=== PATIENT | female | born 1965 | race Caucasian/White ===

== ENCOUNTER → 2017-11-19 08:29 | Outpatient (CLI) | payer OTHER, SELFPAY ==
[2017-11-19 12:37] LABS: Hemoglobin A1c 6.2 % (4.2-6.3)
[2017-11-19 12:55] LABS: Anion Gap 9 (5-15); BUN 15 mg/dL (7-18); BUN/Creat Ratio 20.9 RATIO (10-20); Calcium,Total 9.4 mg/dL (8.5-10.1); Chloride 106 mmol/L (98-107); Creatinine, Serum 0.72 mg/dL (0.55-1.02); EST Glomerular Filtration Rate 90 mL/min (>60); Est Glom Filt Rate - Afr Amer 109 mL/min (>60); Glucose 102 mg/dL (74-106); Potassium 4.3 mmol/L (3.5-5.1); Sodium Level 139 mmol/L (136-145); T4 Free Direct 0.82 ng/dL (0.76-1.46); Thyroid Stim Hormone (TSH) 3.04 uIU/mL (0.358-3.74)
== END ==
PROVIDERS: Family Provider Family Medicine; PCP Family Medicine; Visit Provider Family Medicine
DX: E03.9 Hypothyroidism, unspecified (principal); R73.01 Impaired fasting glucose
CPT/HCPCS: 36415; 80048; 83036; 84439; 84443

== ENCOUNTER → 2020-09-11 09:18 | Outpatient (CLI) | payer OTHER, SELFPAY ==
[2017-11-30 16:16] VITALS: BMI 29.1
[2020-09-11 12:48] LABS: Vitamin D,25 Hydroxy 59.6 ng/mL
[2020-09-11 12:56] LABS: ALB/GLOB Ratio 1.1 RATIO (0.9-2.4); AST(SGOT) 35 U/L (15-37); Alanine Aminotransfer ALT/SGPT 57 U/L (13-56); Albumin, Serum 4.2 g/dL (3.2-5.0); Alkaline Phosphatase 81 U/L (45-117); Anion Gap 6 (5-15); BUN 15 mg/dL (7-18); BUN/Creat Ratio 19.1 RATIO (10-20); Calcium,Total 9.2 mg/dL (8.5-10.1); Chloride 106 mmol/L (98-107); Cholesterol 240 mg/dL (200); Creatinine, Serum 0.79 mg/dL (0.55-1.02); EST Glomerular Filtration Rate 80 mL/min (>60); Est Glom Filt Rate - Afr Amer 97 mL/min (>60); Globulin 3.8 g/dL (2.2-4.2); Glucose 99 mg/dL (74-106); High Density Lipoprotein 52 mg/dL; Potassium 4.7 mmol/L (3.5-5.1); Sodium Level 139 mmol/L (136-145); Thyroid Stim Hormone (TSH) 1.93 uIU/mL (0.358-3.74); Triglycerides 250 mg/dL; Very Low Density Lipoprotein 50 mg/dL (5-40)
== END ==
PROVIDERS: PCP Family Medicine; Visit Provider Family Medicine
DX: E78.5 Hyperlipidemia, unspecified (principal); E03.9 Hypothyroidism, unspecified; E55.9 Vitamin D deficiency, unspecified; R74.02 Elevation of levels of lactic acid dehydrogenase [LDH]
CPT/HCPCS: 36415; 80053; 80061; 82306; 84443

== ENCOUNTER → 2021-01-06 08:30 | Outpatient (CLI) | payer OTHER, SELFPAY | PROVIDERS: PCP Family Medicine; Visit Provider Family Medicine | DX: Z20.828 Contact with and (suspected) exposure to other viral communicable diseases (principal) | CPT/HCPCS: 87635; U0005; U0003 ==

== ENCOUNTER → 2022-10-29 | Outpatient (CLI) | payer OTHER, SELFPAY ==
[2022-10-29 10:20] LABS: Absolute Neutrophil Count 2.3 X10^3/uL (2.0-7.7); Basophil# 0.05 X10^3/uL; Basophil% 0.9 % (0-1); Eosinophil# 0.17 X10^3/uL; Eosinophils% 3.1 % (0-5); Hematocrit 41.3 % (37-47); Hemoglobin 13.6 g/dL (12.0-15.0); Lymphocyte % 46.8 % (19-41); Mean Corp Hgb Conc 32.9 g/dL (32-36); Mean Corpuscular Hgb 30.7 pg (27.0-32.0); Mean Corpuscular Volume 93.2 fL (81-99); Mean Platelet Vol. 9.3 fl (6.2-12.0); Monocyte# 0.36 X10^3/uL; Monocyte% 6.5 % (0-10); NRBC Flagged by Analyzer 0 % (0-5); Neutrophil # 2.31 X10^3/uL (2.7-7.7); Neutrophil % 41.4 % (47-70); Platelet Count 373 K/mm3 (150-450); RBC Distribution Width CV 12.7 % (11.6-14.6); RBC Distribution Width SD 43.8 fl (35.1-43.9); Red Blood Count 4.43 M/mm3 (4.2-5.4); White Blood Count 5.6 K/mm3 (4.4-11.0)
[2022-10-29 10:26] LABS: Vitamin B12 840 pg/mL (211-911); Vitamin D,25 Hydroxy 40.7 ng/mL
[2022-10-29 10:33] LABS: AST(SGOT) 136 U/L (15-37); Alanine Aminotransfer ALT/SGPT 263 U/L (13-56); Alkaline Phosphatase 134 U/L (45-117); Anion Gap 8 (5-15); BUN 13 mg/dL (7-18); BUN/Creat Ratio 17.2 RATIO (10-20); Calcium,Total 9.4 mg/dL (8.5-10.1); Chloride 104 mmol/L (98-107); Cholesterol 313 mg/dL (200); Creatinine, Serum 0.76 mg/dL (0.55-1.02); EST Glomerular Filtration Rate 83 mL/min (>60); Est Glom Filt Rate - Afr Amer 101 mL/min (>60); Globulin 4.2 g/dL (2.2-4.2); Glucose 107 mg/dL (74-106); High Density Lipoprotein 35 mg/dL; Potassium 4.1 mmol/L (3.5-5.1); Protein, Total 8.2 g/dL (6.4-8.2); Sodium Level 137 mmol/L (136-145); Triglycerides 441 mg/dL
[2022-10-29 10:49] LABS: Hemoglobin A1c 5.9 % (3.8-5.6)
== END | disposition home or self-care (01) ==
PROVIDERS: PCP Family Medicine; Referring Provider Family Medicine; Visit Provider Family Medicine
DX: Z13.0 Encounter for screening for diseases of the blood and blood-forming organs and certain disorders involving the immune mechanism (principal); E78.5 Hyperlipidemia, unspecified; E03.9 Hypothyroidism, unspecified; R53.83 Other fatigue; Z13.1 Encounter for screening for diabetes mellitus
CPT/HCPCS: 36415; 80053; 80061; 82306; 82607; 83036; 84439; 84443; 85025

== ENCOUNTER → 2022-11-04 | Outpatient (CLI) | payer OTHER, SELFPAY ==
--- NOTE | 2022-11-04 08:48 | US_ITS ---
STUDY: ABDOMINAL ULTRASOUND - RIGHT UPPER QUADRANT REASON FOR VISIT: Female, 57 years old elevated liver enzymes TECHNIQUE: Ultrasound evaluation of the right upper quadrant was performed with real-time and static velasquez-scale imaging. TECHNICAL QUALITY: Adequate. COMPARISON: None. FINDINGS: Liver: The liver measures 17 cm. There is increased echogenicity consistent with fatty infiltration. The bile ducts are within normal limits. There is hepatic color flow. The direction of portal flow is hepatopetal. There is no demonstrated mass lesion. Gallbladder: Normal distended gallbladder. The gallbladder wall measures 2 mm. There is a negative sonographic Scott''s sign. There is no pericholecystic fluid. There are no gallstones. Common Bile Duct (C.B.D.): The common bile duct measures 6 mm. Pancreas: Normal size of the head, body and tail of the pancreas. There is normal echogenicity of the pancreas. There is no demonstrated pancreatic mass or cyst. Right Kidney: Normal size of the right kidney. The right kidney measures 11.6 cm x 4.8 cm x 5.3 cm. Normal renal cortex. The right cortex measures 1.7 cm. There is no demonstrated renal mass or cyst. There is no right hydronephrosis. US/Abdomen Limited IMPRESSION: Borderline hepatomegaly. Fatty infiltration of the liver. Electronically Signed: Anuj Bourgeois MD at 15:40 EDT ,
== END | disposition home or self-care (01) ==
LOC: US 08:47
PROVIDERS: PCP Family Medicine; Referring Provider Family Medicine; Visit Provider Family Medicine
DX: R74.8 Abnormal levels of other serum enzymes (principal)
CPT/HCPCS: 76705

== ENCOUNTER → 2022-11-26 | Outpatient (CLI) | payer OTHER, SELFPAY ==
[2022-11-26 10:54] LABS: AST(SGOT) 25 U/L (15-37); Alanine Aminotransfer ALT/SGPT 41 U/L (13-56); Albumin, Serum 4.4 g/dL (3.2-5.0); Alkaline Phosphatase 79 U/L (45-117); Bilirubin, Direct 0.14 mg/dL (0.00-0.30); Globulin 3.9 g/dL (2.2-4.2); Protein, Total 8.3 g/dL (6.4-8.2); Thyroid Stim Hormone (TSH) 7.94 uIU/mL (0.358-3.74)
== END | disposition home or self-care (01) ==
LOC: MTLAB 08:47
PROVIDERS: PCP Family Medicine; Referring Provider Family Medicine; Visit Provider Family Medicine
DX: R74.8 Abnormal levels of other serum enzymes (principal); E03.9 Hypothyroidism, unspecified
CPT/HCPCS: 36415; 80076; 84443

== ENCOUNTER 2022-12-18 07:19 | Emergency (ER) | payer OTHER, SELFPAY ==
[2022-12-18 07:19] VITALS: BP 159/114; PULSE 107; RESP 16; TEMP 36.1; O2SAT 99
[2022-12-18 07:22] VITALS: BMI 27.6
--- NOTE | 2022-12-18 07:23 | EKG12_ITS ---
Test Reason : CP Blood Pressure : / mmHG Vent. Rate : 088 BPM Atrial Rate : 088 BPM P-R Int : 132 ms QRS Dur : 092 ms QT Int : 366 ms P-R-T Axes : 060 076 -11 degrees QTc Int : 442 ms Normal sinus rhythm T wave abnormality Abnormal ECG Confirmed by NICOLE TALAVERA, STEFANO ([id number]), book editor CLAIR JACOBS ([id number]) on 12/22/2022 8:43:22 AM Referred By: SHALA Confirmed By:STEFANO RIVERA MD
--- NOTE | 2022-12-18 07:23 | ED.VIS.CHEST ---
HPI History of Present Illness Chief Complaint: Palpitations Detail of Chief Complaint: Chest pressure, palpitations and dizziness Informant: patient and spouse/S.O. Onset/Context/Timing Onset: Yesterday (Last evening when she went to get her in a beverage) and Weeks (1 week ago after playing golf) Activity at onset: sudden Timing: Continuous (Patient states the pressure is still present since last evening) Quality: Positive for Pressure Location: Substernal Current Severity: Mild Maximum Severity: Moderate Worsened By: Nothing Relieved By: - (Supine position) Associated Symptoms: Positive for Diaphoresis, Dyspnea, Lightheadedness (Patient defines dizziness as lightheadedness) and Palpitations; Negative for Cough, Fever or Acid Reflux Narrative Narrative: Patient is a 57-year-old woman with history of hypothyroidism hypercholesterolemia who states her blood pressure was elevated 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 She is not on antihypertensive meds. She is on a cholesterol med and thyroid medicine. She states she was not on her thyroid medicine for some time because her doctor left town and the position that assumed her care would not fill her prescription. Patient denies history of GERD, hiatal hernia or peptic ulcers. Patient denies change in color, consistency or caliber of her stool. Patient denies history of VTE and has no risk factors. She is not on hormonal therapy. She denies leg pain, swelling discoloration. Patient denies recent illness, fever, chills or night sweats. Other than the episode that occurred last Wednesday after 27 holes of golf and episode last evening patient has not experienced chest pressure before. The discomfort does not radiate. Prior Similar Symptoms: No Recent Illness/Hospitalization: No CVD Risk Factors: Positive for Hypercholesterolemia; Negative for Hypertension, Diabetes, Family History 1' </=55 or Smoking PE Risk Factors: Negative for Recent Travel/Surgery, Recent Immobilization, Prior DVT or PE, Cancer or OCP + Smoking + >/=35 TAD Risk Factors: Negative for Marfan's Syndrome, Hypertension or Family History PFSH PFS Medical History (Updated 12/18/22 @ 10:[address] Baldomero Zavala MD) Hypothyroid Post endometrial ablation syndrome Allergy/AdvReac Type Severity Reaction Status Date / Time Penicillins Allergy Rash Verified 12/18/22 07:21 Sulfa (Sulfonamide Allergy Rash Verified 12/18/22 07:21 Antibiotics) Social History (Updated 12/18/22 @ 07:[address] Baldomero Zavala MD) household members: spouse Smoking Status: Never smoker alcohol intake: never substance use type: does not use what type of physical activity do you participate in: walking and aerobics frequency: 3-4 times per week ROS ROS ED Constitutional Constitutional ED: Denies chills, fever(s), subjective, sweats or weight loss Eyes Eyes: Reports none; Denies blurry vision, change in vision or diplopia ENT ENT ED: Denies ear pain, rhinorrhea or sore throat Cardiovascular Cardiovascular: Reports as per HPI; Denies orthopnea or paroxysmal nocturnal dyspnea Respiratory/Chest Respiratory/Chest: Reports dyspnea; Denies cough, dyspnea on exertion, orthopnea, paroxysmal nocturnal dyspnea or sputum Gastrointestinal Gastrointestinal: Denies abdominal pain, diarrhea, melena or vomiting Genitourinary Genitourinary ED: Denies dysuria, hematuria or urinary frequency Musculoskeletal Musculoskeletal: Denies arthralgias, back pain, myalgias or neck pain Integumentary Denies rash Neurologic Neurologic: Denies headache(s) or paresthesias Psychiatric Psychiatric: Reports anxiety; Denies depression Endocrine Endocrinology: Denies cold intolerance or heat intolerance Hematologic/Lymphatic Hematologic/Lymphatic: Denies easy bleeding or easy bruising EXAM Physical Exam Const Vital Signs: 12/18/22 07:19 12/18/22 07:24 12/18/22 07:54 Temperature 97.0 F L Temperature Source Temporal Pulse Rate 107 H 87 90 Respiratory Rate 16 12 18 Blood Pressure 159/114 H 151/102 H 152/95 H Blood Pressure Mean 129 118 114 Pulse Ox 99 95 Oxygen Delivery Method Room Air Room Air 12/18/22 09:43 Temperature Temperature Source Pulse Rate 78 Respiratory Rate 14 Blood Pressure 134/86 H Blood Pressure Mean 102 Pulse Ox 97 Oxygen Delivery Method Room Air Positive well nourished and well developed General Appearance ED: well developed and NAD HEENT Reports moist mucous membranes normocephalic and atraumatic Eyes PERRL and EOMs intact bilaterally General Eye ED: Negative for pale conjunctiva or scleral icterus Neck no lymphadenopathy, supple and no JVD Chest Wall inspection of chest normal and palpation of chest normal Resp normal respiratory effort and clear to auscultation bilaterally Cardio regular rate, regular rhythm, S1 normal heart sound, S2 normal heart sound and no murmurs GI normal to inspection, nondistended, normoactive bowel sounds, non-tender, non-distended and no masses; Negative for hepatosplenomegaly Back/Spine no CVA tenderness Extremity normal to inspection Extremity Narrative: There is no asymmetry, swelling, discoloration, leg vein distention, palpable cords or tenderness along the distribution of the deep venous system. General Extremety ED: Negative for edema, pulses abnormal or tenderness General Extremity: Negative for edema or pulses abnormal Neuro oriented x3, CN's II-XII intact bilaterally, no sensory deficits noted and gait normal Sensorium / Orientation: awake and alert Psych mental status grossly normal Skin no rashes or lesions noted and no wounds Heart Score History: Slightly/Non-Suspicious ECG: Nonspecific Repolarization Age: >45 - <65 years Risk Factors: 1 or 2 Risk Factors Troponin: </= Normal Limit Score: 3 MDM MDM MDM Narrative Medical decision making narrative: Patient is a middle-aged woman who presents with chest pressure lightheadedness and palpitations. She had a stress test in 2007 which was unremarkable. Differential diagnosis would include cardiac ischemia, noncardiac etiology which would include GI, pulmonary. Patient is not PERC negative however story is not consistent with PE. Her Wells score for DVT is -2. Will obtain EKG, troponin and 2-hour troponin as well as appropriate blood work. Since patient has an abnormal EKG will treat with aspirin. Patient has elevated blood pressure. Initial heart rate was rapid. Repeat is normal. She is not hypoxic. Patient had an ultrasound of her gallbladder because of the elevated liver enzymes, which did normalize. It is suspect this is due to fatty liver. Ultrasound that was read by Dr. Bella revealed borderline hepatomegaly and fatty liver infiltration. Dr. Warner called back and said there are no old EKGs available for review. Patient heart score is 3. She is at low risk and is appropriate for outpatient work-up. History & Record Review Discussion w/independent historian: Patient and Significant other Additional record(s) reviewed:: Prior outpatient record (Nothing available later than 2018.) and Prior labs (Patient had lab work October and November of this year. In October patient had elevated transaminases. They were normal when labs were repeated in November.) Lab Data Attestation: I reviewed the patient's lab results. Lab results narrative: CBC is unremarkable. Basic metabolic panel is unremarkable. First troponin is normal at 5. 2-hour is pending. 2-hour troponin is 5 with a delta of 0. The EKG changes may be chronic. Patient qualifies for outpatient work-up/stress test. She will need to follow-up with her doctor to arrange for outpatient stress test. Labs: Laboratory Results - last 24 hr 12/18/22 12/18/22 12/18/22 07:25 07:25 09:45 WBC 6.0 RBC 4.68 Hgb 14.7 Hct 43.0 MCV 91.9 MCH 31.4 MCHC 34.2 RDW Std Deviation 41.5 RDW Coeff of Jimmie 12.4 Plt Count 292 MPV 9.4 Sodium 141 Potassium 4.0 Chloride 108 H Carbon Dioxide 24.0 Anion Gap 9 BUN 14 Creatinine 0.73 Estim Creat Clear Calc 83.70 Est GFR (MDRD) Af Amer 105 Est GFR (MDRD) Non-Af 86 BUN/Creatinine Ratio 19.2 Glucose 113 H Calcium 9.6 Troponin I High Sens 5 5 Radiography Chest X-Ray - ED: 2 View and Read by ED Physician (3 view chest x-ray dependently reviewed interpreted by me at 0742 as normal. Cardiac silhouette and size normal. Perihilar region normal. Lung parenchyma normal. Osseous structures unremarkable.) X-Ray: No Fracture Diagnostic Testing: Clinical Impression(s) from Imaging Studies Chest X-Ray 12/18/22 07:35 IMPRESSION: No acute cardiopulmonary disease. Electronically Signed: Guy Bailey MD at 7:50 EDT Reading Location ID and State: [facility] / [place] Tel , Service support , Rhythm Strip Rhythm Strip: Sinus Rhythm Rate: 84 EKG Initial EKG: Attestation: I personally reviewed and interpreted this EKG as follows: Interpretation: Sinus Rhythm (Rate is 88. OH interval is 132 ms. Cures duration 92 ms. QT duration 366 ms. [place] is normal. There is evidence of inferolateral ST-T wave changes. There is no old EKG for comparison.) Prior: No Prior Management Discussion w/another healthcare provider: Other (Dr. Warner was contacted is on-call for Ortho group Dr. Jones worked for to determine if there is an old EKG.) Discharge Plan Triage Chief Complaint: Palpitations ED Provider: LucasBaldomero Dx/Rx/DC Orders Clinical Impression: Pressure in chest, Hypercholesterolemia, Elevated BP without diagnosis of hypertension, Abnormal ECG, Hypothyroidism Instructions: ED Chest Pain, Uncertain Cause, ED Hypertension, To Be Confirmed Primary Care Provider: Faith Vines Referrals: Faith Vines, [Primary Care Provider] -
[2022-12-18 07:24] VITALS: BP 151/102; PULSE 87; RESP 12
--- NOTE | 2022-12-18 07:26 | NURSING ---
NO OLD EKGS
--- NOTE | 2022-12-18 07:35 | RAD_ITS ---
EXAM: XR CHEST, 2 VIEWS CLINICAL INDICATION: Chest pressure TECHNIQUE: Frontal and lateral views of the chest. COMPARISON: No relevant prior studies available. FINDINGS: LUNGS AND PLEURAL SPACES: Normal. No consolidation or edema. No pneumothorax. No effusion. HEART: Normal heart size. MEDIASTINUM: No mediastinal or hilar mass. BONES/JOINTS: No acute abnormality. RAD/Chest PA and Lateral IMPRESSION: No acute cardiopulmonary disease. Electronically Signed: Guy Bailey MD at 7:50 EDT ,
[2022-12-18 07:37] LABS: Hemoglobin 14.7 g/dL (12.0-15.0); Mean Corp Hgb Conc 34.2 g/dL (32-36); Mean Corpuscular Hgb 31.4 pg (27.0-32.0); Mean Corpuscular Volume 91.9 fL (81-99); Mean Platelet Vol. 9.4 fl (6.2-12.0); Platelet Count 292 K/mm3 (150-450); RBC Distribution Width CV 12.4 % (11.6-14.6); RBC Distribution Width SD 41.5 fl (35.1-43.9); Red Blood Count 4.68 M/mm3 (4.2-5.4)
[2022-12-18 07:53] LABS: Anion Gap 9 (5-15); BUN 14 mg/dL (7-18); BUN/Creat Ratio 19.2 RATIO (10-20); Calcium,Total 9.6 mg/dL (8.5-10.1); Chloride 108 mmol/L (98-107); Creatinine, Serum 0.73 mg/dL (0.55-1.02); EST Glomerular Filtration Rate 86 mL/min (>60); Est Glom Filt Rate - Afr Amer 105 mL/min (>60); Glucose 113 mg/dL (74-106); Sodium Level 141 mmol/L (136-145); Troponin-I HS (w/2H Reflex) 5 pg/mL (3.0-54.0)
[2022-12-18] MEDS: Aspirin 81 MG TAB.CHEW 324 MG PO (07:53)
[2022-12-18 07:54] VITALS: BP 152/95; PULSE 90; RESP 18; O2SAT 95
[2022-12-18 09:31] LABS: Reflex Troponin-HS? (from REC) Y
[2022-12-18 09:43] VITALS: BP 134/86; PULSE 78; RESP 14; O2SAT 97
[2022-12-18 10:07] LABS: Troponin-I HS 5 pg/mL (3.0-54.0)
== END 2022-12-18 10:55 | disposition home or self-care (01) ==
LOC: ED 07:33
PROVIDERS: Emergency Provider Emergency Medicine; PCP Family Medicine; Visit Provider Emergency Medicine
DX: R07.89 Other chest pain (principal); E78.00 Pure hypercholesterolemia, unspecified; R03.0 Elevated blood-pressure reading, without diagnosis of hypertension; E03.9 Hypothyroidism, unspecified; R94.31 Abnormal electrocardiogram [ECG] [EKG]; Z79.899 Other long term (current) drug therapy
CPT/HCPCS: 71046; 80048; 84484; 85027; 93005; 99284; A4216

== ENCOUNTER → 2023-01-28 | Outpatient (CLI) | payer OTHER, SELFPAY ==
[2023-01-28 10:53] LABS: T4 Free Direct 0.74 ng/dL (0.76-1.46); Thyroid Stim Hormone (TSH) 5.68 uIU/mL (0.358-3.74)
== END | disposition home or self-care (01) ==
LOC: MTLAB 08:43
PROVIDERS: PCP Family Medicine; Visit Provider Family Medicine
DX: E03.9 Hypothyroidism, unspecified (principal)
CPT/HCPCS: 36415; 84439; 84443

== ENCOUNTER → 2023-04-02 | Outpatient (CLI) | payer OTHER, SELFPAY ==
[2023-04-02 10:39] LABS: ALB/GLOB Ratio 1.1 RATIO (0.9-2.4); AST(SGOT) 20 U/L (15-37); Alanine Aminotransfer ALT/SGPT 32 U/L (13-56); Albumin, Serum 4.2 g/dL (3.2-5.0); Alkaline Phosphatase 67 U/L (45-117); Anion Gap 5 (5-15); BUN 11 mg/dL (7-18); BUN/Creat Ratio 17.4 RATIO (10-20); Calcium,Total 9.4 mg/dL (8.5-10.1); Chloride 110 mmol/L (98-107); Cholesterol 136 mg/dL (200); Creatinine, Serum 0.63 mg/dL (0.55-1.02); EST Glomerular Filtration Rate 102 mL/min (>60); Est Glom Filt Rate - Afr Amer 124 mL/min (>60); Globulin 3.7 g/dL (2.2-4.2); Glucose 94 mg/dL (74-106); High Density Lipoprotein 48 mg/dL; Potassium 3.9 mmol/L (3.5-5.1); Protein, Total 7.9 g/dL (6.4-8.2); Sodium Level 140 mmol/L (136-145); T4 Free Direct 0.98 ng/dL (0.76-1.46); Thyroid Stim Hormone (TSH) 1.65 uIU/mL (0.358-3.74); Triglycerides 163 mg/dL; Very Low Density Lipoprotein 33 mg/dL (5-40)
== END | disposition home or self-care (01) ==
LOC: MTLAB 07:41
PROVIDERS: PCP Family Medicine; Referring Provider Family Medicine; Visit Provider Family Medicine
DX: E78.5 Hyperlipidemia, unspecified (principal); E03.9 Hypothyroidism, unspecified
CPT/HCPCS: 36415; 80053; 80061; 84439; 84443

== ENCOUNTER → 2024-04-13 | Outpatient (CLI) | payer OTHER, SELFPAY ==
[2024-04-13 12:26] LABS: Absolute Lymphocyte Count 2.21 X10^3/uL (0.83-4.51); Absolute Neutrophil Count 2.3 X10^3/uL (2.0-7.7); Basophil# 0.04 X10^3/uL; Basophil% 0.8 % (0-1); Eosinophil# 0.16 X10^3/uL; Eosinophils% 3.1 % (0-5); Hematocrit 42.4 % (37-47); Hemoglobin 13.9 g/dL (12.0-15.0); Lymphocyte # 2.21 X10^3/ul (0.83-4.51); Lymphocyte % 43.3 % (19-41); Mean Corp Hgb Conc 32.8 g/dL (32-36); Mean Corpuscular Hgb 31.1 pg (27.0-32.0); Mean Corpuscular Volume 94.9 fL (81-99); Mean Platelet Vol. 9.8 fl (6.2-12.0); Monocyte# 0.42 X10^3/uL; Monocyte% 8.2 % (0-10); NRBC Flagged by Analyzer 0 % (0-5); Neutrophil # 2.25 X10^3/uL (2.7-7.7); Neutrophil % 44.2 % (47-70); Platelet Count 304 K/mm3 (150-450); RBC Distribution Width CV 12.5 % (11.6-14.6); RBC Distribution Width SD 43.6 fl (35.1-43.9); Red Blood Count 4.47 M/mm3 (4.2-5.4); White Blood Count 5.1 K/mm3 (4.4-11.0)
[2024-04-13 13:03] LABS: ALB/GLOB Ratio 1.1 RATIO (0.9-2.4); AST(SGOT) 24 U/L (15-37); Alanine Aminotransfer ALT/SGPT 32 U/L (13-56); Albumin, Serum 4.1 g/dL (3.2-5.0); Alkaline Phosphatase 78 U/L (45-117); Anion Gap 6 (5-15); BUN 14 mg/dL (7-18); BUN/Creat Ratio 19.5 RATIO (10-20); Calcium,Total 9.7 mg/dL (8.5-10.1); Chloride 107 mmol/L (98-107); Cholesterol 181 mg/dL (200); Creatinine, Serum 0.72 mg/dL (0.55-1.02); EST Glomerular Filtration Rate 88 mL/min (>60); Est Glom Filt Rate - Afr Amer 106 mL/min (>60); Globulin 3.8 g/dL (2.2-4.2); Glucose 110 mg/dL (74-106); Hemoglobin A1c 5.8 % (3.8-5.6); High Density Lipoprotein 54 mg/dL; Potassium 4.4 mmol/L (3.5-5.1); Protein, Total 7.9 g/dL (6.4-8.2); Sodium Level 138 mmol/L (136-145); T4 Free Direct 0.89 ng/dL (0.76-1.46); Triglycerides 170 mg/dL; Very Low Density Lipoprotein 34 mg/dL (5-40)
== END | disposition home or self-care (01) ==
LOC: BFHLAB 09:13
PROVIDERS: PCP Family Medicine; Referring Provider Family Medicine; Visit Provider Family Medicine
DX: E78.5 Hyperlipidemia, unspecified (principal); E03.9 Hypothyroidism, unspecified; R73.01 Impaired fasting glucose
CPT/HCPCS: 36415; 80053; 80061; 83036; 84439; 85025

== ENCOUNTER → 2025-04-19 | Outpatient (CLI) | payer OTHER, SELFPAY ==
[2025-04-19 15:25] LABS: Hematocrit 40.6 % (37-47); Hemoglobin 13.8 g/dL (12.0-15.0); Immature Granulocytes Count 0.020 X10^3/uL (0.0-0.0); Mean Corp Hgb Conc 34.0 g/dL (32-36); Mean Corpuscular Volume 93.3 fL (81-99); Mean Platelet Vol. 9.9 fl (6.2-12.0); NRBC Flagged by Analyzer 0 % (0-5); POSITIVE COUNT YES; Platelet Count 316 K/mm3 (150-450); RBC Distribution Width CV 12.0 % (11.6-14.6); RBC Distribution Width SD 41.1 fl (35.1-43.9); Red Blood Count 4.35 M/mm3 (4.2-5.4); White Blood Count 5.3 K/mm3 (4.4-11.0)
[2025-04-19 16:06] LABS: Differential Indicated SCAN CRITERIA MET
[2025-04-19 16:07] LABS: Differential Comment SCANNED
== END | disposition home or self-care (01) ==
LOC: MTLAB 11:03
PROVIDERS: PCP Family Medicine; Referring Provider Family Medicine; Visit Provider Family Medicine
DX: E78.5 Hyperlipidemia, unspecified (principal); E03.9 Hypothyroidism, unspecified; R73.01 Impaired fasting glucose
CPT/HCPCS: 36415; 80053; 80061; 83036; 84439; 84443; 85025

== ENCOUNTER → 2025-05-01 | Outpatient (CLI) | payer OTHER, SELFPAY ==
[2025-05-01 11:03] LABS: AST(SGOT) 19 U/L (<=31); Alanine Aminotransfer ALT/SGPT 23 U/L (<=34); Albumin, Serum 4.5 g/dL (3.4-4.8); Alkaline Phosphatase 76 U/L (35-104); Anion Gap 11 (5-15); BUN 14 mg/dL (4-19); BUN/Creat Ratio 21.8 RATIO (10-20); Calcium,Total 10.0 mg/dL (7.6-11.0); Carbon Dioxide 25.0 mmol/L (21.0-32.0); Chloride 104 mmol/L (98-108); Cholesterol 171 mg/dL (<=200); Globulin 3.1 g/dL (2.2-4.2); Glucose 98 mg/dL (70-99); Low Density Lipoprotein Calc. 86 mg/dL; Potassium 4.6 mmol/L (3.3-5.1); Triglycerides 165 mg/dL; Very Low Density Lipoprotein 33 mg/dL (5-40); cholesterol:hdl ratio screen 3.27
== END | disposition home or self-care (01) ==
LOC: LAB 08:54
PROVIDERS: PCP Family Medicine; Referring Provider Family Medicine; Visit Provider Family Medicine
DX: E78.5 Hyperlipidemia, unspecified (principal); E03.9 Hypothyroidism, unspecified; R73.01 Impaired fasting glucose
CPT/HCPCS: 80053; 80061; 84439; 84443

== ENCOUNTER 2025-05-18 07:19 | Day surgery (SDC) | payer OTHER, SELFPAY ==
[2025-05-18] VITALS (9 sets, daily range): BP systolic 93–119; BP diastolic 54–75; PULSE 59–70; RESP 16–18; TEMP 36.1–36.4; O2SAT 95–99; BMI 24.5
--- NOTE | 2025-05-18 07:51 | PCM.PRE.AN2 ---
ASA Classification* ASA Classification ASA Classification: 2 Assessment & Plan Anesthesia* Anesthesia Assessment Anesthesia Assessment: Discussed sedation and/or anesthesia options, risks, benefits, and alternatives with patient/parents/legal guardian/POA. Questions invited. The patient/parents/legal guardian/POA seems to understand and agrees to proceed with anesthesia plan. Reviewed the physical assessment, medical history, allergy history and patient home medications list prior to surgery/procedure/anesthetic and documented any changes. Performed airway and anesthesia risk assessments. Anesthesia Type Anesthesia Type: MAC Anesthesia Focused Assessment* Temperature: 97.6 F Pulse Rate: 70 Blood Pressure: 119/75 Respiratory Rate: 18 Pulse Ox: 99 Airway Assessment Mouth opens: >3 cm Mallampati Score: II Labs Anesthesia Preop lab: CBC WBC, (4.4-11.0) 5.3 K/mm3 04/19/25, 11:17 RBC, (4.2-5.4) 4.35 M/mm3 04/19/25, 11:17 Hgb, (12.0-15.0) 13.8 g/dL 04/19/25, 11:17 Hct, (37-47) 40.6 % 04/19/25, 11:17 Plt Count, (150-450) 316 K/mm3 04/19/25, 11:17 CHEMISTRY Potassium, (3.3-5.1) 4.6 mmol/L 05/01/25, 09:00 Sodium, (133-145) 139 mmol/L 05/01/25, 09:00 BUN, (4-19) 14 mg/dL 05/01/25, 09:00 Creatinine, (0.70-1.20) 0.64 mg/dL L 05/01/25, 09:00 Glucose, (70-99) 98 mg/dL 05/01/25, 09:00 TSH, (0.300-4.200) 1.930 uIU/mL 05/01/25, 09:00 COAG Pre-Assessment Diagnosis/Proposed Procedure Planned Operative Procedure(s): COLONOSCOPY Anesthesia History 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 When Was Last Pacemaker Check QUESTION #4 FULL TEXT: You/Your Family Experience fever (hyperthermia) with Anesthesia Last Oral Intake Last Oral intake: Last Oral Intake NPO since 04:30 05/18/25 07:48 Meds taken in AM with sips of No 05/18/25 07:48 water? Meds patient instructed to take am of surgery PONV PONV - general accountant: PONV - general accountant Female Yes 05/16/25 12:09 HX of Motion Sickness No 05/16/25 12:09 HX of N/V After Surgery No 05/16/25 12:09 Non-Smoker Yes 05/16/25 12:09 Duration of Surgery greater No 05/16/25 12:09 than 60 minutes Number of Risk Factors 2 05/16/25 12:09 PONV Score Moderate Risk 05/16/25 12:09 Height & Weight Height & Weight: Anesthesia: Height & Weight Height 5 ft 6 in 05/18/25 07:48 Weight: 69 kg 05/18/25 07:48 Body Mass Index (BMI) 24.5 05/18/25 07:48 Respiratory Assessment Respiratory Assessment - general accountant: Respiratory Tract Infection Hx - general accountant Hx Respiratory Tract Infection No 05/16/25 12:09 STOP Sleep Apnea STOP Sleep Apnea - general accountant: STOP Sleep Apnea - general accountant Hx Hypertension Yes 05/16/25 12:09 Hx Sleep Apnea No 05/16/25 12:09 CPAP BIPAP Do you snore loudly (louder No 05/16/25 12:09 than talking or can be heard Do you often feel tired/ No 05/16/25 12:09 fatigued/ sleepy during daytime? Has anyone observed you stop No 05/16/25 12:09 breathing during sleep? STOP Results Negative 05/16/25 12:09 QUESTION #5 FULL TEXT : Do you snore loudly (louder than talking or can be heard through closed doors)? 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 Specify any problems Hx of Preganancy in last 3 No 05/16/25 12:09 Months Nurse Filling Out Transfusion VLEHMAN 05/16/25 12:09 & Questions: Date: 05/16/25 05/16/25 12:09 Time: 12:11 05/16/25 12:09 Patient unable to answer at this time (ie. confused, unrespo /Reproduction History /Reproductive History - general accountant: /Reproductive Hx- general accountant Hx Now No 05/16/25 12:09 Gestational Age (in weeks): EDC: Hx Hx Para Hx Section SAB No 05/16/25 12:09 Active Medications Active Medications: Current Medications Generic Name Dose Route Start Last Admin Trade Name Freq PRN Reason Stop Dose Admin Lactated Ringer's 1,000 mls @ 15 mls/hr 05/18/25 07:45 IV .Q48H RAZIA PFSH Medical History Wears glasses Anxiety Thyroid disease High cholesterol Injury of head and neck Non-smoker Post endometrial ablation syndrome Hypothyroid Home Medications ?Medication ?Instructions ?Recorded ?Last Taken ?Type calcium carbonate (Calcium 600) 600 mg PO DAILY 05/16/25 05/16/25 History cholecalciferol (vitamin D3) 25 25 mcg PO DAILY 05/16/25 05/16/25 History mcg (1,000 unit) capsule (Vitamin D3) fluoxetine 20 mg capsule 20 mg PO DAILY 05/16/25 05/17/25 History levothyroxine 88 mcg tablet 88 mcg PO DAILY 05/16/25 05/17/25 History lorazepam 0.5 mg tablet 0.5 mg PO BID PRN PRN anxiety 05/16/25 Unknown History magnesium glycinate 100 mg (as 200 mg PO DAILY 05/16/25 05/16/25 History glycinate) tablet (Mag Glycinate) multivitamin-ferrous 1 tab PO DAILY 05/16/25 05/16/25 History fumarate-folic acid 18 mg-400 mcg tablet (Centrum) rosuvastatin 10 mg tablet 10 mg PO QHS 05/16/25 05/16/25 History Allergy/AdvReac Type Severity Reaction Status Date / Time Penicillins Allergy Rash Verified 05/18/25 07:44 Sulfa (Sulfonamide Allergy Rash Verified 05/18/25 07:44 Antibiotics) Social History household members: spouse Smoking Status: Never smoker alcohol intake: never substance use type: does not use what type of physical activity do you participate in: walking and aerobics frequency: 3-4 times per week Review of Systems (Anesthesia) ROS Narrative System reviewed and no additional complaints, except as documented.
[2025-05-18] MEDS: Lactated Ringers 1,000 ML 15 ML IV (08:00)
--- NOTE | 2025-05-18 08:29 | PCM.HP.STD ---
HPI - General General Date of Admission: 05/18/25 Date of Service: 05/18/25 Chief Complaint: Screening colonoscopy HPI Narrative ZONIA WATT, is a 60 F who presents [for screening colonoscopy. The patient had a colonoscopy in the past approximately 10 years ago. She is not having any problems with her bowels at this time. She denies any chest pain or shortness of breath.] [facility] Medical History Wears glasses Anxiety Thyroid disease High cholesterol Injury of head and neck Non-smoker Post endometrial ablation syndrome Hypothyroid Home Medications ?Medication ?Instructions ?Recorded ?Last Taken ?Type calcium carbonate (Calcium 600) 600 mg PO DAILY 05/16/25 05/16/25 History cholecalciferol (vitamin D3) 25 25 mcg PO DAILY 05/16/25 05/16/25 History mcg (1,000 unit) capsule (Vitamin D3) fluoxetine 20 mg capsule 20 mg PO DAILY 05/16/25 05/17/25 History levothyroxine 88 mcg tablet 88 mcg PO DAILY 05/16/25 05/17/25 History lorazepam 0.5 mg tablet 0.5 mg PO BID PRN PRN anxiety 05/16/25 Unknown History magnesium glycinate 100 mg (as 200 mg PO DAILY 05/16/25 05/16/25 History glycinate) tablet (Mag Glycinate) multivitamin-ferrous 1 tab PO DAILY 05/16/25 05/16/25 History fumarate-folic acid 18 mg-400 mcg tablet (Centrum) rosuvastatin 10 mg tablet 10 mg PO QHS 05/16/25 05/16/25 History Allergy/AdvReac Type Severity Reaction Status Date / Time Penicillins Allergy Rash Verified 05/18/25 07:44 Sulfa (Sulfonamide Allergy Rash Verified 05/18/25 07:44 Antibiotics) Social History household members: spouse Smoking Status: Never smoker alcohol intake: never substance use type: does not use what type of physical activity do you participate in: walking and aerobics frequency: 3-4 times per week ROS Constitutional Constitutional: Denies fatigue, fever(s), poor appetite, weight gain or weight loss Gastrointestinal Gastrointestinal: Denies belching, bloating, change in bowel habits, change in stool character, chewing difficulty, coffee ground emesis, constipation, cramping, diarrhea, dyspepsia, dysphagia, early satiety, excessive flatus, fecal incontinence, heartburn, hematemesis, hematochezia, hemorrhoids, loose stools, melena, nausea, odynophagia, rectal bleeding, tenesmus, vomiting or weight changes Vital Signs Vital Signs Vital Signs: 05/18/25 07:48 05/18/25 07:48 05/18/25 07:52 Temperature 97.6 F L 97.6 F L Temperature Source Temporal Pulse Rate 70 70 Respiratory Rate 18 18 Respiratory Pattern Normal Blood Pressure 119/75 119/75 Blood Pressure Mean 89 Blood Pressure Source Monitor Blood Pressure Position Semi-Fowlers Blood Pressure Location Right Arm Pulse Ox 99 99 Oxygen Delivery Method Room Air Weight Weight: 152 lb 1.903 oz Body Mass Index (BMI) 24.5 Physical Exam Const alert, oriented x3, no apparent distress and healthy appearing General Appearance: cooperative GI normal to inspection, nondistended, normoactive bowel sounds, soft to palpation, non-tender and non-distended Percussion: normal to percussion Rectal Exam: deferred Assessment & Plan Assessment/Plan (1) Encounter for screening colonoscopy: PLAN: 60-year-old comes in for screening colonoscopy. She was explained alternatives, risk and benefits including withstanding bleeding, infection, sepsis, perforation, need for MedSurg and . She will have an ASA of 3.
--- NOTE | 2025-05-18 09:33 | OP.COLON_ITS ---
Patient Name: Lenka Michelle
--- NOTE | 2025-05-18 09:38 | POSTOP.ANE_ITS ---
Anesthesia: Postop Eval I
--- NOTE | 2025-05-18 09:38 | PCM.POST.ANE ---
Anesthesia: Postop Eval I Current Vital Signs Temperature: 97.5 F Pulse Rate: 61 Blood Pressure: 110/68 Respiratory Rate: 16 Pulse Ox: 96 Oxygen Delivery Method: Room Air Assessment Airway patent: Yes Spontaneous unlabored respirations: Yes Mental status: Asleep nausea: No Vomiting: No Anesthesia Complication: No Fluid Hydration Crystalloid volume administer (ml): 500 Total IV fluid infused: 500 Progress Note Anesthesia document: Postop Eval 1 completed: Yes
--- NOTE | 2025-05-18 11:03 | POSTOPAN2_ITS ---
Anesthesia Postop Eval I Sum
--- NOTE | 2025-05-18 11:03 | PCM.POSTANE2 ---
Anesthesia Postop Eval I Sum Postop Eval Completion status Anesthesia document: Postop Eval 1 completed: Yes Anesthesia Postop Eval I Summary Anesthesia Postop Eval I Summary: Anesthesia Postop Eval I: Assessment Summary Airway patent Yes 05/18/25 09:38 [email or web address] Spontaneous unlabored Yes 05/18/25 09:38 [email or web address] respirations Mental status Asleep 05/18/25 09:38 [email or web address] nausea No 05/18/25 09:38 [email or web address] Vomiting No 05/18/25 09:38 [email or web address] Anesthesia Postop Eval I: Fluid Summary Crystalloid volume administer 500 05/18/25 09:38 [email or web address] (ml) Colloids volume administered ( ml) Blood Product volume administered (ml) Total IV fluid infused 500 05/18/25 09:38 [email or web address] Anesthesia Postop Eval I: Summary Notes Anesthesia Complication No 05/18/25 09:38 [email or web address] Anesthesia Complication Comment: Post-operative progress note Anesthesia: Postop Eval II Evaluation Mental status: Awake Pain Level: 0 nausea: No Vomiting: No
== END 2025-05-18 10:22 | disposition home or self-care (01) ==
LOC: EN 07:25 → AC 07:27
PROVIDERS: PCP Family Medicine; Referring Provider Family Medicine; Visit Provider Internal Medicine Gastroenterology
PROC: 0DJD8ZZ Inspection of Lower Intestinal Tract, Via Natural or Artificial Opening Endoscopic (ICD-10-PCS; CPT 45378; principal; 2025-05-18 08:25)
DX: Z12.11 Encounter for screening for malignant neoplasm of colon (principal); K57.30 Diverticulosis of large intestine without perforation or abscess without bleeding; E78.00 Pure hypercholesterolemia, unspecified; F41.9 Anxiety disorder, unspecified; Z79.899 Other long term (current) drug therapy; E03.9 Hypothyroidism, unspecified; Z79.890 Hormone replacement therapy
CPT/HCPCS: 45378; J2405